=== PATIENT | female | born 1980 | race Two or more races ===

== ENCOUNTER → 2021-04-23 | Outpatient (CLI) | payer OTHER ==
[~2021-04-23] MED LIST: GADOTERATE 7.5 MMOL/15ML VIAL. IVP ONE
--- NOTE | 2021-04-23 16:16 | RAD ---
MRI BRAIN WO+W Date: 04/23/2021 11:14 AM Indication: F/U DURAL CALCIFICATION Comparison: 06/19/2018. Technique: Multiplanar multisequence MRI of the brain was performed with and without intravenous cont rast using the standard protocol. 11 cc Clariscan contrast was administered intravenously during the exam. Findings: No acute infarct. No acute or chronic hemorrhage. The ventricles are normal in size and configuration without hydrocephalus. Unchanged probable dural calcification along the right tentorium. No abnormal enhancement. The scalp and calvarium are normal. The pituitary and sella are normal. No Chiari malformation. The v isualized upper cervical spine is normal. The visualized orbits and globes are normal. The visualized paranasal sinuses are clear. The mastoid air cells are clear. Normal flow voids within the vertebral, basilar, and internal carotid arteries indicating patency. IMPRESSION: Unchanged probable dural calcification along the right tentorium. Electronically signed by: Cristopher Currie MD (04/23/2021 4:14 PM) [id number]
== END ==
LOC: MRI 11:27
PROVIDERS: ATTEND Family Medicine
DX: G93.89 Other specified disorders of brain (principal)
CPT/HCPCS: 70553; A9575